=== PATIENT | female | born 1995 | race Caucasian/White ===

== ENCOUNTER 2023-11-04 15:27 | Emergency (ER) | payer OTHER ==
[~2023-11-04] VITALS: Ht 157.5 cm; Wt 77.0 kg
[~2023-11-04 15:27] MED LIST: MOTRIN800 MG PO
[2023-11-04 16:07] LABS: BASO% 0.1 % (0-3); EOS% 0.7 % (0-8); HEMATOCRIT 33.5 % (37.0-47.0); HEMOGLOBIN 10.8 g/dl (12.0-16.0); IMMATURE GRANULOCYTES 0.2 % (0.0-5.0); LYMPH% 19.6 % (15-41); MEAN CELL VOLUME 82.7 fL CALC (80.0-100.0); MEAN CORPUSCULAR HGB 26.7 pG CALC (26.0-32.0); MEAN CORPUSCULAR HGB CONC 32.2 g/dL CAL (32.0-36.0); MONO% 4.4 % (2-13); NEUT# 7.19 thou/uL (2.00-7.15); RED BLOOD COUNT 4.05 mill/uL (4.20-5.60); RED CELL DISTRI WIDTH 13.8 % (11.5-15.5)
[2023-11-04 16:25] LABS: ALBUMIN 4.2 g/dL (3.2-5.0); BILIRUBIN, TOTAL 0.2 mg/dL (0.02-1.3); CREATININE 0.6 mg/dL (0.5-1.0); POTASSIUM 4.1 mmol/l (3.5-5.1); TOTAL PROTEIN 7.4 g/dL (6.3-8.2)
[2023-11-04 16:26] VITALS: BP 114/58
[2023-11-04 16:31] VITALS: BP 78/58
[2023-11-04 16:45] VITALS: BP 99/84
[2023-11-04 16:52] VITALS: BP 99/84
== END 2023-11-04 16:55 | disposition home or self-care (01) | DRG 923 ==
LOC: ED 15:27
PROVIDERS: Family Medicine
DX: Z04.1 Encounter for examination and observation following transport accident (principal); O98.711 Human immunodeficiency virus [HIV] disease complicating pregnancy, first trimester; Z3A.08 8 weeks gestation of pregnancy; Z21 Asymptomatic human immunodeficiency virus [HIV] infection status